=== PATIENT | male | born 1985 | race Caucasian/White ===

== ENCOUNTER 2016-09-06 07:55 | Emergency (ER) | payer OTHER ==
[2016-09-06 08:12] VITALS: BP 151/96
--- NOTE | 2016-09-06 08:59 | UC ---
Eye Complaint HPI - HPI Summary HPI Summary: 30 yo male with right upper lid pain and swelling x 3 days scant d/c no photophobia or fb sensation - History of Current Complaint Chief Complaint: UCEye Stated Complaint: EYE IRRITATION Time Seen by Provider: 09/06/16 08:38 Hx Obtained From: Patient Onset/Duration: Gradual Onset, Lasting Days Timing: Constant Severity Initially: Mild Severity Currently: Mild Pain Intensity: 3 Pain Scale Used: 0-10 Numeric Location of Injury: Eye Lid (upper) Character: Dull Aggravating Factor(s): Nothing Alleviating Factor(s): Nothing Associated Signs And Symptoms: Positive: Drainage (Purulent) - scant, Swelling. Negative: Photophobia, Drainage (Clear), Vision Impairment Bilateral, Vision Impairment Right, Vision Impairment Left, Fever - Risk Factors Penetrating Injury Risk Factor: Negative Globe Rupture Risk Factors: Negative Acute Glaucoma Risk Factors: Negative Optic Artery Occlusion Risk Factors: Negative - Allergies/Home Medications Allergies/Adverse Reactions: Allergies Allergy/AdvReac Type Severity Reaction Status Date / Time No Known Allergies Allergy Verified 03/16/15 19:44 PMH/Surg Hx/FS Hx/Imm Hx Previously Healthy: Yes Endocrine History Of: Denies: Diabetes, Thyroid Disease Cardiovascular History Of: Denies: Cardiac Disorders, Hypertension, Pacemaker/ICD Respiratory History Of: Denies: COPD, Asthma GI/ History Of: Denies: Ulcer - Surgical History Surgical History: None - Family History Known Family History: Negative: Cardiac Disease, Hypertension, Diabetes - Social History Alcohol Use: Occasionally Substance Use Type: Marijuana Smoking Status (MU): Heavy Every Day Tobacco Smoker Type: Cigarettes Amount Used/How Often: 6 CIG/DAY Length of Time of Smoking/Using Tobacco: 12 YEARS Have You Smoked in the Last Year: Yes Review of Systems Constitutional: Negative Skin: Negative Eyes: Drainage ENT: Negative Respiratory: Negative Cardiovascular: Negative Gastrointestinal: Negative Genitourinary: Negative Motor: Negative Neurovascular: Negative Musculoskeletal: Negative Neurological: Negative Psychological: Negative All Other Systems Reviewed And Are Negative: Yes Physical Exam Triage Information Reviewed: Yes Appearance: Well-Appearing, No Pain Distress, Well-Nourished Vital Signs: Initial Vital Signs Temp 98.5 F 09/06/16 08:06 Pulse 75 09/06/16 08:06 Resp 16 09/06/16 08:06 BP 151/96 09/06/16 08:06 Pulse Ox 96 09/06/16 08:06 Eyes: Positive: Conjunctiva Clear, Discharge - scant right, Other: - right upper lid edema and erthyema/sty ENT: Positive: Hearing grossly normal. Negative: Nasal congestion, Nasal drainage, Trismus, Muffled/hoarse voice Neck exam: Normal Neck: Positive: Supple, Nontender Respiratory: Positive: Lungs clear, Normal breath sounds, No respiratory distress, No accessory muscle use Cardiovascular: Positive: RRR, No Murmur Abdomen Description: Positive: Nontender, No Organomegaly, Soft Musculoskeletal: Positive: ROM Intact, No Edema Neurological: Positive: Alert Psychological Exam: Normal Skin: Negative: rashes Eye Complaint Course/Dx - Course Course Of Treatment: advised to have BP rechecked in 1-2 weeks - Differential Dx/Diagnosis Provider Diagnoses: right eye sty and lid cellulitis Discharge - Discharge Plan Condition: Stable Disposition: HOME Prescriptions: Cephalexin CAP* [Keflex 500 CAP*] 500 mg PO QID #28 cap Erythromycin OPHTH.OINT* [Ilotycin OPHTH.OINT*] 1 applic RIGHT EYE QID #1 ophth.oint Patient Education Materials: Cellulitis (ED), Stye (ED) Forms: *Work Release Referrals: Riley Treadwell MD [Primary Care Provider] - 3 Days (if not better) Edison May MD [Medical Doctor] - If Needed Elliott Flores MD [Medical Doctor] - If Needed Additional Instructions: recheck for new or worsening symptoms if not better by Friday see your MD or one of the eye doctors listed
== END 2016-09-06 08:58 | disposition home or self-care (01) ==
LOC: UCEAST 07:55
DX: H00.011 Hordeolum externum right upper eyelid (principal); H00.031 Abscess of right upper eyelid; F12.10 Cannabis abuse, uncomplicated; F17.210 Nicotine dependence, cigarettes, uncomplicated
CPT/HCPCS: 99212; G0463

== ENCOUNTER 2016-09-16 15:11 | Emergency (ER) | payer OTHER ==
[2016-09-16 15:32] VITALS: BP 155/100
[2016-09-16] MEDS ORDERED: Phenylephrine 1% NASAL* 15 ML BOT BOTH NARES ONE (16:50)
--- NOTE | 2016-09-16 17:20 | UC ---
General HPI - HPI Summary HPI Summary: Patient started having a nosebleed at 1030 this morning. he got it under control and then again at 1630 it started to bleed again and has not been able to stop it. blood in both nostrils, and spitting up clots through his mouth. patient BP is elevated 155/100, he states that it has been that way for some time, past hx of cocaine and prescription drug abuse, but denies anything illegal other that pot at this time. patient is a smoker and drinks weekly. denies lightheadedness or dizzyness. he did say he was hit on the left side of the head with a softball 2 days ago. - History of Current Complaint Chief Complaint: UCGeneralIllness Stated Complaint: BLOODY NOSE Time Seen by Provider: 09/16/16 16:46 Hx Obtained From: Patient Onset/Duration: Sudden Onset, Lasting Hours Timing: Constant Onset Severity: Moderate Current Severity: Severe - Allergy/Home Medications Allergies/Adverse Reactions: Allergies Allergy/AdvReac Type Severity Reaction Status Date / Time No Known Allergies Allergy Verified 09/16/16 15:33 PMH/Surg Hx/FS Hx/Imm Hx Previously Healthy: Yes Endocrine History Of: Denies: Diabetes, Thyroid Disease Cardiovascular History Of: Denies: Cardiac Disorders, Hypertension, Pacemaker/ICD Respiratory History Of: Denies: COPD, Asthma GI/ History Of: Denies: Ulcer - Surgical History Surgical History: None - Family History Known Family History: Negative: Cardiac Disease, Hypertension, Diabetes - Social History Alcohol Use: Occasionally Substance Use Type: Marijuana, Other - past hx of cocaine and prescriptions drug abuse Smoking Status (MU): Heavy Every Day Tobacco Smoker Type: Cigarettes Amount Used/How Often: 6 CIG/DAY Length of Time of Smoking/Using Tobacco: 12 YEARS Have You Smoked in the Last Year: Yes Review of Systems Constitutional: Negative Skin: Negative Eyes: Negative ENT: Epistaxis Respiratory: Negative Cardiovascular: Negative Gastrointestinal: Negative Genitourinary: Negative Motor: Negative Neurovascular: Negative Musculoskeletal: Negative Neurological: Negative Psychological: Negative All Other Systems Reviewed And Are Negative: Yes Physical Exam Triage Information Reviewed: Yes Appearance: Well-Appearing, Well-Nourished, Pain Distress Vital Signs: Initial Vital Signs Temp 99.1 F 09/16/16 15:26 Pulse 101 09/16/16 15:26 Resp 20 09/16/16 15:26 BP 155/100 09/16/16 15:26 Pulse Ox 99 09/16/16 15:26 Vital Signs Reviewed: Yes Eye Exam: Normal Eyes: Positive: Conjunctiva Clear ENT: Positive: Pharyngeal erythema, Nasal drainage - large amount of bloody drainage from right nostril, moderate from the left, no deviation of septum noted, not able to visualize source of bleeding Dental Exam: Normal Neck exam: Normal Neck: Positive: Supple, Nontender, No Lymphadenopathy Respiratory Exam: Normal Respiratory: Positive: Chest non-tender, Lungs clear, Normal breath sounds Cardiovascular Exam: Normal Cardiovascular: Positive: No Murmur, Pulses Normal, Tachycardia Abdominal Exam: Normal Abdomen Description: Positive: Nontender, No Organomegaly, Soft Bowel Sounds: Positive: Present Musculoskeletal Exam: Normal Musculoskeletal: Positive: Strength Intact, ROM Intact, No Edema Neurological Exam: Normal Neurological: Positive: Alert, Muscle Tone Normal Psychological Exam: Normal Skin Exam: Normal Course/Dx - Course Course Of Treatment: hx obtained, exam performed, meds reviewed, attempted to stop the nose bleed via pressure, addison syn ephrine without good effect in the right nostril. left nostil did stop at this point. right nostril continues to bleed. patient willing to go to ER for further treatment, paperwork signed for refusal of ambulance - Differential Dx - Multi-Symptom Provider Diagnoses: epistaxis - Physician Notifications Discussed Patient Care With: STEFANI Rascon in [facility] Discharge - Discharge Plan Condition: Stable Disposition: AGAINST MEDICAL ADVICE
== END 2016-09-16 17:46 | disposition left against medical advice (07) ==
LOC: UCEAST 15:11
DX: R04.0 Epistaxis (principal); F12.90 Cannabis use, unspecified, uncomplicated; F17.210 Nicotine dependence, cigarettes, uncomplicated
CPT/HCPCS: 99212; A9270-GY; G0463

== ENCOUNTER → 2016-09-16 17:39 | Emergency (ER) | payer OTHER ==
[~2016-09-16 17:39] MED LIST: LORazepam TAB(*) 1 MG PO ONE
[2016-09-16 19:17] VITALS: BP 166/120
--- NOTE | 2016-09-16 22:27 | ED ---
Hypertension - HPI Summary HPI Summary: Patient arrives from with a nosebleed lasting for 3 hours despite addison syn ephrine and double tampon packing. He was noted to have high blood pressure at 150/100, 155/110 and 149/98. He has a positive family history of HTN but has never had it himself as far as he knows. He has never been on BP medications. He has had chronic back pain in which he has been taking opioids, and thinks this maybe a cause of his HTN. He denies CALLAHAN, weakness, numbness or tingling or other symptoms. He denies urinary symptoms, blood in urine or flank pain. He is otherwise healthy, although he smokes, marijuana use and drinks weekly. Nosebleed today was spontaneous and he denies injury. Patient does note that he has done drugs in the past up his nares, and may have damaged the tissue surrounding. He denies drug use currently and last use was 5 years ago. - History of Current Complaint Chief Complaint: EDEpistaxis Stated Complaint: REPEATING NOSE BLEEDS Time Seen by Provider: 09/16/16 19:44 Hx Obtained From: Patient Onset/Duration: Started Hours Ago Timing: Constant Aggravating Factor(s): Nothing Alleviating Factor(s): Rest Associated Signs & Symptoms: Other: - anisicoria - Risk Factors Cardiac Risk Factors: Hypertension, Family History - Allergies/Home Medications Allergies/Adverse Reactions: Allergies Allergy/AdvReac Type Severity Reaction Status Date / Time No Known Allergies Allergy Verified 09/16/16 15:33 PMH/Surg Hx/FS Hx/Imm Hx Previously Healthy: Yes Endocrine/Hematology History: Denies: Hx Diabetes, Hx Thyroid Disease Cardiovascular History: Denies: Hx Hypertension, Hx Pacemaker/ICD Respiratory History: Denies: Hx Asthma, Hx Chronic Obstructive Pulmonary Disease (COPD) GI History: Denies: Hx Ulcer Sensory History: Denies: Hx Hearing Aid Psychiatric History: Denies: Hx Panic Disorder - Immunization History Hx Pertussis Vaccination: No Immunizations Up to Date: No Infectious Disease History: No Infectious Disease History: Denies: Hx Hepatitis, Hx Human Immunodeficiency Virus (HIV), Traveled Outside the [place] in Last 30 Days - Family History Known Family History: Negative: Cardiac Disease, Hypertension, Diabetes - Social History Occupation: Employed Full-time Lives: With Family Alcohol Use: Occasionally Hx Substance Use: Yes Substance Use Type: Reports: Marijuana, Other Hx Tobacco Use: Yes Smoking Status (MU): Heavy Every Day Tobacco Smoker Type: Cigarettes Amount Used/How Often: 6 CIG/DAY Length of Time of Smoking/Using Tobacco: 12 YEARS Have You Smoked in the Last Year: Yes Review of Systems Constitutional: Negative Eyes: Negative Positive: Epistaxis Cardiovascular: Negative Respiratory: Negative Genitourinary: Negative Musculoskeletal: Negative Neurological: Negative Psychological: Normal All Other Systems Reviewed And Are Negative: Yes Physical Exam Triage Information Reviewed: Yes Vital Signs On Initial Exam: Initial Vitals Temp Pulse Resp BP Pulse Ox 98.9 F 97 18 149/99 99 09/16/16 17:45 09/16/16 17:45 09/16/16 17:45 09/16/16 17:45 09/16/16 17:45 Vital Signs Reviewed: Yes Appearance: Positive: Well-Appearing, No Pain Distress, Well-Nourished Skin: Positive: Warm, Skin Color Reflects Adequate Perfusion Eyes: Positive: EOMI, NEGRITA, Conjunctiva Clear, Other: - anisocoria noted Neck: Positive: Supple, No Lymphadenopathy Cardiovascular: Positive: Normal, RRR Musculoskeletal: Positive: Normal Neurological: Positive: Normal, Sensory/Motor Intact, Alert, Oriented to Person Place, Time - [place] Coma Scale Best Eye Response: 4 - Spontaneous Best Motor Response: 6 - Obeys Commands Best Verbal Response: 5 - Oriented Coma Scale Total: 15 Diagnostics - Vital Signs Vital Signs Temp Pulse Resp BP Pulse Ox 09/16/16 20:52 18 09/16/16 19:14 99.4 F 95 16 166/120 100 09/16/16 17:45 98.9 F 97 18 149/99 99 - Laboratory Lab Statement: Any lab studies that have been ordered have been reviewed, and results considered in the medical decision making process. Hypertension Course/Dx - Course Course Of Treatment: Patient arrives with packing. Left packing in for 1 hour while ativan was given and taken effect. Patients BP were noted to be 150/100, 156/113, after ativan 148/98. Tampons were dislodged with no bleeding occurring. Patient waited in ED for 30 min to assure bleeding would not resume. No obvious lesions were identified as the source of bleeding. Patient and family requesting BP medications d/t family and now personal history. Provider explained ED usually does not start patients on new BP medications, but d/t nosebleeds, continuing borderline HTN emergency numbers and request, will give amlodipine 5mg daily for a 30 day supply. Patient agrees to discuss this with his PCP tomorrow morning and get opinion before the start of the medication. Patient discharged with return precautions for nosebleeds, how to handle nosebleeds at home and discontinuation of all NSAIDS. ENT referral may be required at some point, and patient agrees. Upon course of treatment, anisocoria was noted. However, patient stated he has been using eye ointment for a staph bacterial infection of the left eye. - Diagnoses Differential Diagnosis/HQI PQRI: Hypertension, Hypertensive Crisis, Hypertensive Urgency, Other - epistaxis Provider Diagnoses: Epistaxis, Hypertension Discharge - Discharge Plan Condition: Stable Disposition: HOME Prescriptions: amLODIPine TAB* [Norvasc 5 mg TAB*] 5 mg PO DAILY #30 tab Patient Education Materials: Amlodipine (By mouth), Nosebleed (ED), Hypertension (ED) Forms: *Work Release Referrals: Riley Treadwell MD [Primary Care Provider] - Additional Instructions: Amlodipine 5mg once daily. Call your PCP tomorrow morning and discuss the medication and why you came to the ED. If bleeding happens again, pinch the bridge of the nose for 45 minutes., Ice pack to the area will help slow bleeding. Follow up with your doctor next month as scheduled Take BP readings a few times a week if you can, and record. If you develop light headedness, weakness, paleness, stop taking the medication.
== END | disposition home or self-care (01) ==
LOC: ED 17:39
DX: R04.0 Epistaxis (principal); I10 Essential (primary) hypertension; F17.210 Nicotine dependence, cigarettes, uncomplicated
CPT/HCPCS: 99282; A9270-GY